=== PATIENT | female | born 1980 | race Caucasian/White ===

== ENCOUNTER → 2016-12-04 | Outpatient (CLI) | payer BC ==
[~2016-12-04] MED LIST: AMIT50TA3 PO; AMOX500C2 PO; ANTI15DR4 EACH EAR; ARPZ10T PO; ATOM80CA PO; CEPH500C PO; CTLP20T PO; DESV50TA PO; HYOS0.1283 SL; NAPR-243 PO; PANT40TA2 PO; TRAM-42 PO
[2016-12-04 11:37] LABS: BASOPHILS # (AUTO) 0.1 10^3/uL (0.0-0.1); BASOPHILS % (AUTO) 0 % (0-10); EOSINOPHILS # (AUTO) 0.2 10^3/uL (0.0-0.3); EOSINOPHILS % (AUTO) 1 % (0-10); LYMPHOCYTES # (AUTO) 2.7 X 10^3 (1.0-4.0); LYMPHOCYTES % (AUTO) 21 % (12-44); MEAN CORPUSCULAR HEMOGLOBIN 32 PG (25-34); MEAN CORPUSCULAR HGB CONC 35 G/DL (32-36); MEAN CORPUSCULAR VOLUME 92 FL (80-99); MEAN PLATELET VOLUME 9.3 FL (7.4-10.4); MONOCYTES # (AUTO) 0.6 X 10^3 (0.0-1.0); MONOCYTES % (AUTO) 5 % (0-12); NEUTROPHILS # (AUTO) 9.5 X 10^3 (1.8-7.8); NEUTROPHILS % (AUTO) 73 % (42-75); PLATELET COUNT 362 10^3/uL (130-400); RED BLOOD COUNT 4.44 10^6/uL (4.35-5.85); RED CELL DISTRIBUTION WIDTH 12.8 % (10.0-14.5)
[2016-12-04 11:50] LABS: ALANINE AMINOTRANSFERASE 12 U/L (0-55); ALBUMIN 4.3 GM/DL (3.2-4.5); ANION GAP 9 MMOL/L (5-14); ASPARTATE AMINO TRANSFERASE 17 U/L (5-34); BILIRUBIN,TOTAL 1.1 MG/DL (0.1-1.0); BLOOD UREA NITROGEN 12 MG/DL (7-18); BUN/CREATININE RATIO 16; CALCIUM 9.7 MG/DL (8.5-10.1); CARBON DIOXIDE 26 MMOL/L (21-32); CHLORIDE 106 MMOL/L (98-107); CREATININE SERUM 0.76 MG/DL (0.60-1.30); GFR ESTIMATED > 60; GLUCOSE 127 MG/DL (70-105); POTASSIUM 3.7 MMOL/L (3.6-5.0); SODIUM 141 MMOL/L (135-145); TOTAL PROTEIN 6.9 GM/DL (6.4-8.2)
[2016-12-04 12:05] LABS: EOSINOPHILS % (MANUAL) 1 %; LYMPHOCYTES % (MANUAL) 25 %; NEUTROPHILS % (MANUAL) 72 %
== END ==
LOC: LAB 11:13
PROVIDERS: ATTEND Nurse Practitioner Family
DX: A08.4 Viral intestinal infection, unspecified (principal)
CPT/HCPCS: 36415; 80053; 85007; 85027

== ENCOUNTER → 2018-04-15 | Outpatient (CLI) | payer BC ==
--- NOTE | 2018-04-15 11:27 | Diagnostic Imaging Report ---
EXAMINATION: Magnetic resonance imaging of the left ankle without contrast. DATE: April 15, 2018. COMPARISON: None. HISTORY: 37-year-old female, left ankle pain laterally. TECHNIQUE: Magnetic Resonance Imaging sequences were performed of the ankle without contrast. [< >] FINDINGS: TENDONS AND LIGAMENTS: The Achilles tendon is unremarkable. There is fluid within the flexor hallucis longus tendon sheath which is disproportional to the amount of tibiotalar joint fluid consistent with tenosynovitis. The additional posterior flexor tendons are intact. The peroneal tendons - peroneus longus and peroneus brevis - are intact. The anterior extensor tendons - tibialis anterior, extensor hallucis longus and extensor digitorum longus tendons - are intact. The anterior and posterior syndesmotic ligaments are intact. There is a well-corticated ossification without marrow edema along the distribution of the anterior talofibular ligament compatible with sequela of remote prior injury. The posterior talofibular ligament and calcaneofibular ligaments are both intact. The deltoid ligament complex is intact. The plantar fascia is intact. The ligaments within the sinus tarsi appear intact. JOINTS: The ankle mortise is intact. The subtalar and visualized joints of the mid-foot are intact. BONE: There is an ossification adjacent to the dorsal and proximal aspect of the navicular with narrow edema in the ossification. There is also generalized edema like signal throughout the majority of the navicular bone. There is also likely a probable nondisplaced fracture line seen on axial PD sequence image 17 and also on sagittal STIR sequence image 8. The additional bone marrow signal is unremarkable. The talar dome is intact. BURSAE AND SOFT TISSUES: The bursae and soft tissues surrounding the ankle are unremarkable. IMPRESSION: 1. Prominent edema like signal throughout the majority of the navicular with nondisplaced fracture of the navicular. This potentially could be a stress related fracture. 2. Ossification adjacent to the dorsal and proximal aspect of the navicular with internal marrow edema. This potentially could reflect a mildly displaced avulsion related fracture fragment or could relate to degenerative type enthesopathy or accessory ossicle with abnormal motion. 3. Tenosynovitis of flexor hallucis longus. Negative for tendon tear. 4. Ossification in the distribution of the anterior talofibular ligament compatible with sequela of remote prior injury. The additional ankle ligaments are intact. Dictated by: Dictated on workstation # [id number]
== END ==
LOC: RAD 09:36
PROVIDERS: ATTEND Nurse Practitioner Family
DX: S92.255A Nondisplaced fracture of navicular [scaphoid] of left foot, initial encounter for closed fracture (principal); S93.492A Sprain of other ligament of left ankle, initial encounter; M67.874 Other specified disorders of tendon, left ankle and foot
CPT/HCPCS: 73721

== ENCOUNTER 2019-05-27 10:10 | Emergency (ER) | payer BC, MEDICAID ==
[~2019-05-27] VITALS: Ht 167 cm; Wt 59.0 kg
[2019-05-27] MEDS ORDERED: GABA-488 PO (10:27)
--- NOTE | 2019-05-27 11:17 | ED Lower Extremity ---
General Chief Complaint: Lower Extremity Stated Complaint: L FOOT INJ Nursing Triage Note: PT TO ROOM 10 PER W/C. PT CO OF L KNEE PAIN, STATES TWISTED KNEE LAST PM WHILE TRYING TO OPEN GATE. PT CO OF PAIN / HAS SL SWELLING Nursing Sepsis Screen: No Definite Risk Source: patient Exam Limitations: no limitations History of Present Illness Date Seen by Provider: May 27, 2019 Time Seen by Provider: 10:40 Initial Comments This 38-year-old woman presents to the emergency room with complaints of pain in the left knee. Pain started last night after she was trying to force open a frozen fence. She was kicking the fence with her right foot. During the twisting motion of kicking the left knee began to hurt. She has effusion and pain with any range of motion in the left knee. She has had more minor problems with this knee in the past but it has not been this severe. She does sometimes have catching of the knee and she has a popping sensation with flexion and extension. She is able to bear weight and walk but with difficulty. Allergies and Home Medications Allergies Coded Allergies: No Known Drug Allergies (Unverified , 04/15/11) Home Medications Gabapentin 300 Mg Capsule, 300 MG PO TID, (Reported) Tramadol HCl 50 Mg Tablet, 50 MG PO Q6H PRN for PAIN-BREAKTHROUGH Prescribed by: JARRETT MORA on 05/27/19 1203 Patient Home Medication List Home Medication List Reviewed: Yes Review of Systems Constitutional: no symptoms reported EENTM: no symptoms reported Respiratory: no symptoms reported Cardiovascular: no symptoms reported Gastrointestinal: no symptoms reported Genitourinary: no symptoms reported : No Musculoskeletal: see HPI Skin: no symptoms reported Psychiatric/Neurological: No Symptoms Reported Past Johqofq-Etsxjh-Rvgisv Hx Past Med/Social Hx: Reviewed Nursing Past Med/Soc Hx Patient Social History Alcohol Use: Rarely Uses Recreational Drug Use: No (SMOKES 1/2 PPD) Smoking Status: Current Everyday Smoker Type Used: Cigarettes Recent Foreign Travel: No Contact w/Someone Who Travel: No Recent Infectious Disease Expo: No Recent Hopitalizations: No Physical Abuse: No Sexual Abuse: No Past Medical History Surgeries: Yes (TEETH REMOVED) Breast, Orthopedic, Tubal Ligation Respiratory: No Cardiac: No Neurological: No Last Menstrual Period: May 27, 2019 Reproductive Disorders: No HIV/AIDS: No Gastrointestinal: Yes (HEPATITIS C) Hepatitis Musculoskeletal: No Endocrine: No Psychosocial: No Integumentary: No Blood Disorders: No Physical Exam Vital Signs Vital Signs - First Documented 05/27/19 10:10 Temp 36.4 Pulse 92 Resp 18 B/P (MAP) 102/80 (87) Pulse Ox 97 Capillary Refill : Less Than 3 Seconds Height, Weight, BMI Height: 5'6" Weight: 160lbs. oz. 72.730678lt; 21.00 BMI Method:Stated General Appearance: WD/WN, no apparent distress, thin HEENT: normal ENT inspection Cardiovascular: regular rate, rhythm, no murmur Respiratory: lungs clear, normal breath sounds, no respiratory distress Legs: left leg non-tender, left leg normal inspection, left leg no evidence of injury Knees: left knee bone tenderness, left knee joint effusion, left knee pain, left knee other (most tender at the medial joint line. Pain with movement of the patella, flexion, extension, and palpation along the anterior joint line. 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, no motor/sensory deficits, alert, normal mood/affect, oriented x 3 Skin: normal color, warm/dry Progress/Results/Core Measures Results/Orders My Orders Orders - JARRETT TEJEDA MD Knee, Left, 3 Views (05/27/19 10:49) Tramadol Tablet (Ultram Tablet) (05/27/19 12:15) Medications Given in ED Current Medications Medications Dose Ordered Sig/Doe Route Start Time Stop Time Status Last Admin Dose Admin Tramadol HCl 50 mg ONCE ONCE PO 05/27/19 12:15 05/27/19 12:16 DC 05/27/19 12:09 50 MG Vital Signs/I&O 05/27/19 05/27/19 10:10 12:16 Temp 36.4 36.4 Pulse 92 92 Resp 18 18 B/P (MAP) 102/80 (87) 102/80 (87) Pulse Ox 97 97 Blood Pressure Mean: 87 Progress Progress Note : Progress Note Knee x-ray was negative. I suspect a meniscal tear based on history and exam. I have recommended patient follow up with Dr. Montes De Oca for further evaluation. Further workup such as MRI or arthroscopic he may be necessary to diagnose the cause of her problem. Ultram was given to treat the pain. A prescription was also provided. Diagnostic Imaging Diagonstic Imaging: Xray Plain Films/CT/US/NM/MRI: knee Comments Left knee x-ray viewed by me and report reviewed. See report below: NAME: PADMINI WOMACK [facility] REC#: [id number] PT STATUS: REG ER : 1980 PHYSICIAN: JARRETT TEJEDA MD ADMIT DATE: 05/27/19/ER Draft Date of Exam:05/27/19 KNEE, LEFT, 3 VIEWS EXAMINATION: Left knee at 11:23 a.m. INDICATION: Knee pain. TECHNIQUE: Three views were obtained. COMPARISON: There are no prior studies available for comparison. FINDINGS: There is no fracture, dislocation, or acute bony abnormality evident. The knee joint is well maintained. The soft tissues are unremarkable. IMPRESSION: There is no evidence for an acute bony abnormality. Dictated on workstation # [id number] Dict: 05/27/19 1153 Trans: 05/27/19 1156 [id number] Interpreted by: PIPE HENDRICKSON MD Departure Impression Primary Impression: Left knee injury Qualified Codes: S89.92XA - Unspecified injury of left lower leg, initial encounter Disposition: 01 HOME, SELF-CARE Condition: Stable Departure-Patient Inst. Decision time for Depature: 12:00 Referrals: PRO HERNANDEZ APRN (PCP) Primary Care Physician CAIT MONTES DE OCA MD Patient Instructions: Meniscal Tear Add. Discharge Instructions: You may use ibuprofen up to 600 mg every 6 hours and/or Tylenol (acetaminophen) up to 1000 mg every 6 hours as needed for primary pain control. Elevation and icing in 20 minute intervals may also be helpful. Compressive wrapping with a knee sleeve or Anand bandage may be helpful. Follow-up with Dr. Monte sDe Oca or your primary care provider as soon as possible for further evaluation. You may need MRI or arthroscopic surgery to appropriately diagnose the cause of your pain. Return to care if symptoms are worsening and not controlled by pcod-kti-gsmjvpf medications. All discharge instructions reviewed with patient and/or family. Voiced understanding. Scripts Tramadol HCl (Ultram) 50 Mg Tablet 50 MG PO Q6H PRN for PAIN-BREAKTHROUGH, #20 TAB Prov: JARRETT TEJEDA MD 05/27/19 Work/School Note: Work Release Form Date Seen in the Emergency Department: May 27, 2019 Return to Work: May 27, 2019 Other Restrictions Listed Below: May have limited mobility due to injury and pain. 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 Copy Copies To 1: CAIT MONTES DE OCA MD, JOSHUA T MD May 27, 2019 11:17
--- NOTE | 2019-05-27 11:56 | Diagnostic Imaging Report ---
EXAMINATION: Left knee at 11:23 a.m. INDICATION: Knee pain. TECHNIQUE: Three views were obtained. COMPARISON: There are no prior studies available for comparison. FINDINGS: There is no fracture, dislocation, or acute bony abnormality evident. The knee joint is well maintained. The soft tissues are unremarkable. IMPRESSION: There is no evidence for an acute bony abnormality. Dictated by: Dictated on workstation # [id number]
[2019-05-27] MEDS ORDERED: TRAM-42 PO (12:09)
[2019-05-27 12:16] VITALS: BP 102/80
== END 2019-05-27 12:16 | disposition home or self-care (01) ==
LOC: EDUNIT# 10:11 → ER 10:12
DX: S89.92XA Unspecified injury of left lower leg, initial encounter (principal); F17.210 Nicotine dependence, cigarettes, uncomplicated; X50.1XXA Overexertion from prolonged static or awkward postures, initial encounter
CPT/HCPCS: 73562

== ENCOUNTER 2020-02-20 14:27 | Emergency (ER) | payer MEDICAID ==
[~2020-02-20] VITALS: Ht 167 cm; Wt 66.0 kg
[~2020-02-20 14:27] MED LIST changes: +GABA-488 PO
[2020-02-20] MEDS ORDERED: KETOROLAC 60 MG/2 ML VIAL IM ONE (15:15)
[2020-02-20] MEDS ORDERED: PROCHLORPERAZINE 10 MG/2ML INJ (COMPAZINE) IM ONE (15:15)
[2020-02-20] MEDS ORDERED: diphenhydrAMINE 50 MG/ML INJ (BENADRYL) IM ONE (15:15)
--- NOTE | 2020-02-20 16:06 | ED Headache ---
General Chief Complaint: Head/Cervical Problems Stated Complaint: HEADACHE Nursing Triage Note: PT CO OF GIBBS SINCE THURSDAY, STATES WAS SEEN BY PROVIDER ON THURSDAY, GIBBS BACK THROBBING RATES PAIN 11/20 Nursing Sepsis Screen: No Definite Risk Source: patient Exam Limitations: no limitations History of Present Illness Date Seen by Provider: Feb 20, 2020 Time Seen by Provider: 15:00 Initial Comments To ER with a headache. This initially started left-sided and then became right- sided. She does have photophobia no nausea or vomiting. It started mild and got progressively worse. No fevers or chills or head trauma. She was seen at [facility] and given a shot of Toradol and Benadryl with improvement in symptoms. It then recurred a few days later, she was given these injections about 3 to 4 days ago. Timing/Duration: waxing and waning Severity/Quality: moderate Location: global Prior Headaches/Recent Trauma: no recent headache/trauma Associated Symptoms: denies symptoms Allergies and Home Medications Allergies Coded Allergies: No Known Drug Allergies (Unverified , 04/15/11) Home Medications Gabapentin 300 Mg Capsule, 300 MG PO TID, (Reported) Tramadol HCl 50 Mg Tablet, 50 MG PO Q6H PRN for PAIN-BREAKTHROUGH Prescribed by: JARRETT MORA on 05/27/19 1209 Patient Home Medication List Home Medication List Reviewed: Yes Review of Systems Review of Systems Constitutional: see HPI; No chills, No fever Eyes: No Symptoms Reported Ears, Nose, Mouth, Throat: no symptoms reported Respiratory: no symptoms reported Cardiovascular: no symptoms reported Genitourinary: no symptoms reported Musculoskeletal: no symptoms reported Skin: no symptoms reported Psychiatric/Neurological: No Symptoms Reported Past Vglxety-Jqpxlb-Lksfcb Hx Patient Social History Alcohol Use: Rarely Uses Recreational Drug Use: No Smoking Status: Current Everyday Smoker Type Used: Cigarettes Recent Foreign Travel: No Contact w/Someone Who Travel: No Recent Infectious Disease Expo: No Recent Hopitalizations: No Physical Abuse: No Sexual Abuse: No Past Medical History Surgeries: Yes (TEETH REMOVED) Breast, Orthopedic, Tubal Ligation Respiratory: No Cardiac: No Neurological: No Last Menstrual Period: Feb 19, 2020 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 oz. 72.648828hs; 23.00 BMI Method:Stated General Appearance: WD/WN, no apparent distress HEENT: PERRL/EOMI, normal ENT inspection Neck: non-tender, full range of motion Respiratory: no respiratory distress, no accessory muscle use Extremities: normal range of motion, non-tender Psychiatric: alert, oriented x 3 Crainal Nerves: normal hearing, normal speech, PERRL Skin: normal color, warm/dry Progress/Results/Core Measures Results/Orders My Orders Orders - SARI NASH APRN Ketorolac Injection (Toradol Injection) (02/20/20 15:15) Prochlorperazine Injection (Compazine In (02/20/20 15:15) Diphenhydramine Injection (Benadryl Inje (02/20/20 15:15) Ct Head Wo (02/20/20 15:15) Medications Given in ED Current Medications Medications Dose Ordered Sig/Doe Route Start Time Stop Time Status Last Admin Dose Admin Diphenhydramine HCl 25 mg ONCE ONCE IM 02/20/20 15:15 02/20/20 15:17 DC 02/20/20 15:35 25 MG Ketorolac Tromethamine 60 mg ONCE ONCE IM 02/20/20 15:15 02/20/20 15:17 DC 02/20/20 15:34 60 MG Prochlorperazine Edisylate 10 mg ONCE ONCE IM 02/20/20 15:15 02/20/20 15:17 DC 02/20/20 15:34 10 MG Vital Signs/I&O 02/20/20 14:50 Temp 36.5 Pulse 71 Resp 18 B/P (MAP) 119/83 (95) Pulse Ox 99 Blood Pressure Mean: 95 Departure Impression Primary Impression: Headache Disposition: 01 HOME, SELF-CARE Condition: Improved Departure-Patient Inst. Decision time for Depature: 16:34 Referrals: FREDERICK CALIX APRN (PCP/Family) Primary Care Physician Patient Instructions: HEADACHE Add. Discharge Instructions: All discharge instructions reviewed with patient and/or family. Voiced understanding. SARI NASH DREDGE PUMP OPERATOR Feb 20, 2020 16:06
--- NOTE | 2020-02-20 16:29 | Diagnostic Imaging Report ---
PROCEDURE: CT head without contrast. TECHNIQUE: Multiple contiguous axial images were obtained through the brain without the use of intravenous contrast. Auto Exposure Controls were utilized during the CT exam to meet ALARA standards for radiation dose reduction. DATE: February 20, 2020. COMPARISON: None. INDICATION: 39-year-old female, headache for 5 days. FINDINGS: The ventricles and cerebral spinal fluid spaces are of normal size and configuration for the patient's age. There is no mass effect or midline shift. There is no acute intracranial hemorrhage. There is no abnormal extra-axial fluid collection. The visualized portions of the paranasal sinuses, mastoid air cells and middle ears are well aerated. IMPRESSION: No identified acute intracranial abnormality. Dictated by: Dictated on workstation # [id number]
[2020-02-20] MEDS ORDERED: BUTA1CAP17 PO (16:39)
[2020-02-20 16:44] VITALS: BP 119/83
== END 2020-02-20 16:44 | disposition home or self-care (01) ==
LOC: EDUNIT# 14:27 → ER 14:31
DX: R51.9 Headache, unspecified (principal); H53.149 Visual discomfort, unspecified; B19.20 Unspecified viral hepatitis C without hepatic coma; F17.210 Nicotine dependence, cigarettes, uncomplicated
CPT/HCPCS: 70450

== ENCOUNTER → 2020-07-30 | Outpatient (CLI) | payer MEDICAID ==
[~2020-07-30] MED LIST changes: +BUTA1CAP17 PO
--- NOTE | 2020-07-30 13:46 | Diagnostic Imaging Report ---
INDICATION: Routine screening. Comparison is made prior mammogram from 05/05/2016. 2-D and 3-D bilateral screening mammography was performed with CAD. Both breasts are heterogeneously dense, limiting the sensitivity of mammography. The parenchymal pattern appears to be stable. There is a mixed density lesion in the upper and outer aspect of the left breast which could represent a lipoma hamartoma. No other masses are seen. No malignant appearing microcalcifications are identified. Axillae are unremarkable. IMPRESSION: BI-RADS Category 2 No mammographic features suspicious for malignancy are identified. ACR BI-RADS Category 2: Benign findings. Result letter will be mailed to the patient. Note: At least 10% of breast cancer is not imaged by mammography. Dictated by: Dictated on workstation # [id number]
== END ==
LOC: RAD 08:15
PROVIDERS: ATTEND Pediatrics
DX: Z12.31 Encounter for screening mammogram for malignant neoplasm of breast (principal)
CPT/HCPCS: 77063; 77067

== ENCOUNTER 2020-11-06 12:24 | Emergency (ER) | payer MEDICAID ==
[~2020-11-06] VITALS: Ht 167.7 cm; Wt 65.0 kg
--- NOTE | 2020-11-06 13:05 | ED General ---
General Chief Complaint: General Problems/Pain Stated Complaint: COVID EXPOSURE Source of Information: Patient Exam Limitations: No Limitations (SARI NASH APRN) History of Present Illness Date Seen by Provider: Nov 06, 2020 Time Seen by Provider: 13:03 Initial Comments To ER by private vehicle with reports of exposure to Covid positive patient last night while at work. She works for [employer]. Her boss required her to come get tested today. She is asymptomatic. She is unvaccinated. Timing/Duration: 1-2 Days Severity: Moderate Associated Systoms: Denies Symptoms (SARI NASH APRN) Allergies and Home Medications Allergies Coded Allergies: No Known Drug Allergies (Unverified , 04/15/11) Home Medications Butalbital/Aspirin/Caffeine 1 Each Capsule, 1 EACH PO Q4H PRN for headache Prescribed by: SARI NASH on 02/20/20 1640 Gabapentin 300 Mg Capsule, 300 MG PO TID, (Reported) Tramadol HCl 50 Mg Tablet, 50 MG PO Q6H PRN for PAIN-BREAKTHROUGH Prescribed by: JARRETT MORA on 05/27/19 1209 Patient Home Medication List Home Medication List Reviewed: Yes (SARI NASH APRN) Review of Systems Review of Systems Constitutional: see HPI EENTM: see HPI Respiratory: no symptoms reported Cardiovascular: no symptoms reported Genitourinary: no symptoms reported Musculoskeletal: no symptoms reported Skin: no symptoms reported Psychiatric/Neurological: No Symptoms Reported Hematologic/Lymphatic: No Symptoms Reported (SARI NASH APRN) Past Zmmluwv-Zrvrks-Ubmksd Hx Past Medical History Surgeries: Yes (TEETH REMOVED) Breast, Orthopedic, Tubal Ligation Respiratory: No Cardiac: No Neurological: No 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 oz. 72.544621ku; 23.00 BMI Method:Stated General Appearance: No Apparent Distress, WD/WN Eyes: Bilateral Eye Normal Inspection, Bilateral Eye PERRL, Bilateral Eye EOMI HEENT: PERRL/EOMI, TMs Normal Neck: Full Range of Motion, Normal Inspection Respiratory: No Accessory Muscle Use, No Respiratory Distress Cardiovascular: Regular Rate, Rhythm, Normal Peripheral Pulses Gastrointestinal: Normal Bowel Sounds, Non Tender, Soft Extremity: Normal Capillary Refill, Normal Inspection Neurologic/Psychiatric: Alert, Oriented x3 Skin: Normal Color, Warm/Dry (SARI NASH APRN) Progress/Results/Core Measures Suspected Sepsis SIRS Temperature: Pulse: Respiratory Rate: Blood Pressure / Mean: (SARI NASH APRN) Results/Orders Lab Results Laboratory Tests Test 11/06/20 12:50 Range/Units SARS-CoV-2 RNA (RT-PCR) Not Detected Not Detecte (JARRETT TEJEDA MD) Vital Signs/I&O 11/06/20 11/06/20 12:36 14:00 Temp 37.2 Pulse 86 83 Resp 16 18 B/P (MAP) 121/80 (94) 106/78 Pulse Ox 97 100 O2 Delivery Room Air Room Air (JARRETT TEJEDA MD) Vital Signs/I&O Capillary Refill : (SARI NASH APRN) Departure Impression Primary Impression: Exposure to COVID-19 virus Disposition: 01 HOME, SELF-CARE Condition: Stable Departure-Patient Inst. Decision time for Depature: 13:04 (SARI NASH APRN) Referrals: [facility]/ (PCP) Primary Care Physician FREDERICK CALIX APRN (Family) Primary Care Physician Patient Instructions: COVID-19 ED Add. Discharge Instructions: 1. Return to ER for any concerns if you have shortness of breath. However your boss should be informed that today's Covid test is essentially pointless because you were just exposed last night and even if positive I would not expect it to test positive for about 4 days. As such she would be a good idea to quarantine since you are unvaccinated for 10 days. All discharge instructions reviewed with patient and/or family. Voiced understanding. ATTENDING PHYSICIAN NOTE: I was physically present as attending physician in the emergency department during the care of this patient, but I was not directly involved in the decision making or delivery of care for this patient. (JARRETT TEJEDA MD) SARI NASH APRN Nov 06, 2020 13:05 JARRETT TEJEDA MD Nov 07, 2020 06:53
[2020-11-06 14:00] VITALS: BP 106/78
== END 2020-11-06 14:02 | disposition home or self-care (01) ==
LOC: EDUNIT# 12:24 → ER 12:26
DX: Z20.822 Contact with and (suspected) exposure to COVID-19 (principal)
CPT/HCPCS: 87636; 99281

== ENCOUNTER 2020-12-06 06:46 | Emergency (ER) | payer MEDICAID ==
[~2020-12-06] VITALS: Ht 167 cm; Wt 65.0 kg
--- NOTE | 2020-12-06 08:13 | Diagnostic Imaging Report ---
EXAMINATION: Right knee 3 views HISTORY: knee pain COMPARISON: None available. FINDINGS: There is a small knee joint effusion. There is soft tissue swelling about the knee. No acute fracture is seen. Alignment is normal. IMPRESSION: 1. Small knee joint effusion and soft tissue swelling about the right knee. No fracture. Dictated by: Dictated on workstation # [id number]
[2020-12-06] MEDS ORDERED: HYDR-3820 PO (09:32)
--- NOTE | 2020-12-06 09:33 | ED Lower Extremity ---
General Chief Complaint: Lower Extremity Stated Complaint: RT KNEE INJURY Nursing Triage Note: pt presents to ed with complaints of r knee pain after injuring it last night. Source: patient Exam Limitations: no limitations Allergies and Home Medications Allergies Coded Allergies: No Known Drug Allergies (Unverified , 04/15/11) Home Medications Butalbital/Aspirin/Caffeine 1 Each Capsule, 1 EACH PO Q4H PRN for headache Prescribed by: SARI NASH on 02/20/20 1640 Gabapentin 300 Mg Capsule, 300 MG PO TID, (Reported) Tramadol HCl 50 Mg Tablet, 50 MG PO Q6H PRN for PAIN-BREAKTHROUGH Prescribed by: JARRETT MORA on 05/27/19 1209 Past Cyxrjcx-Dsqaca-Civrub Hx Patient Social History Tobacco Use?: Yes Tobacco type used: Cigarettes Smoking Status: Current Everyday Smoker Substance use?: No Alcohol Use?: Yes Alcohol Frequency: Once in a while Pt feels they are or have been: No Past Medical History Surgery/Hospitalization HX: sx: foot sx, tubal, breast biopsy, dnc. Surgeries: Yes (TEETH REMOVED) Breast, Orthopedic, Tubal Ligation Respiratory: No Cardiac: No Neurological: No Reproductive Disorders: No [employer] History: Tubal Ligation HIV/AIDS: No Gastrointestinal: Yes (HEPATITIS C) Hepatitis Musculoskeletal: No Endocrine: No Psychosocial: No Integumentary: No Blood Disorders: No Physical Exam Vital Signs Vital Signs - First Documented 12/06/20 07:21 Temp 35.7 Pulse 85 Resp 18 B/P (MAP) 123/68 (86) Pulse Ox 99 Capillary Refill : Less Than 3 Seconds Height, Weight, BMI Height: 5'6" Weight: 160lbs. oz. 72.870034pi; 23.00 BMI Method:Stated Progress/Results/Core Measures Results/Orders My Orders Orders - JARRETT TEJEDA MD Knee, Right, 3 Views (12/06/20 07:47) Vital Signs/I&O 12/06/20 07:21 Temp 35.7 Pulse 85 Resp 18 B/P (MAP) 123/68 (86) Pulse Ox 99 Blood Pressure Mean: 86 Departure Impression Primary Impression: Right knee injury Qualified Codes: S89.91XA - Unspecified injury of right lower leg, initial encounter Disposition: 01 HOME, SELF-CARE Condition: Stable Departure-Patient Inst. Decision time for Depature: 09:29 Referrals: [facility] [place]) Primary Care Physician FREDERICK CALIX APRN (Family) Primary Care Physician CAIT MONTES DE OCA MD Patient Instructions: Ligament Injuries in the Knee Add. Discharge Instructions: Use crutches to ambulate. Use the knee immobilizer as much as possible, especially if you need to bear weight on your right foot. Follow-up with Dr. Montes De Oca's office at 10:30 tomorrow morning. You may take ibuprofen up to 600 mg every 6 hours as needed for pain. Add hydrocodone as prescribed for uncontrolled pain. Elevate as much as possible. Apply ice in 20-minute intervals to help reduce pain and swelling. Call with questions or concerns. Return to the ER if you have worsening symptoms. All discharge instructions reviewed with patient and/or family. Voiced understanding. Scripts Hydrocodone/Acetaminophen (Hydrocodone-Acetamin 10-325 mg) 1 Each Tablet 1 EACH PO Q4H PRN for PAIN-BREAKTHROUGH, #10 TAB Prov: JARRETT TEJEDA MD 12/06/20 JARRETT TEJEDA MD Dec 06, 2020 09:33
[2020-12-06 09:48] VITALS: BP 113/64
== END 2020-12-06 09:48 | disposition home or self-care (01) ==
LOC: EDUNIT# 06:46 → ER 06:50
DX: S89.91XA Unspecified injury of right lower leg, initial encounter (principal); F17.210 Nicotine dependence, cigarettes, uncomplicated; X58.XXXA Exposure to other specified factors, initial encounter
CPT/HCPCS: 73562; 99283; L1830

== ENCOUNTER → 2022-04-28 | Outpatient (CLI) | payer MEDICAID ==
[~2022-04-28] MED LIST changes: +HYDR-3820 PO; +RT-ALBUTEROL SULF 2.5 MG/3 ML PRE-MIX VIAL INH ONE
== END ==
LOC: RT 07:37
PROVIDERS: ATTEND Nurse Practitioner Family
DX: R06.02 Shortness of breath (principal)
CPT/HCPCS: 94060; 94726; 94729

== ENCOUNTER 2022-09-16 13:14 | Emergency (ER) | payer MEDICAID ==
[~2022-09-16] VITALS: Ht 167 cm; Wt 67.0 kg
[~2022-09-16 13:14] MED LIST changes: -RT-ALBUTEROL SULF 2.5 MG/3 ML PRE-MIX VIAL INH ONE
--- NOTE | 2022-09-16 13:55 | ED Back Pain ---
General Chief Complaint: Back Problems Stated Complaint: LOWER BACK PAIN Nursing Triage Note: LOW BACK PAIN X2 WEEKS. NO INJURY. STATES TYLENOL/IBUPROFEN/LIDOCAINE PATCHES NOT HELPING. Source of Information: Patient Exam Limitations: No Limitations History of Present Illness Date Seen by Provider: Sep 16, 2022 Time Seen by Provider: 13:50 Initial Comments Patient is a 42-year-old female who presents ED with low back pain. Back pain started 2 weeks ago. She describes the pain as dull and constant. Pain over the past few days has increased described as sharp worse with bending over or any sudden movement. Denies of any bowel or urine incontinence, saddle paresthesia, lower extremity weakness. Cannot recall any specific injury. She has been taken Tylenol or ibuprofen without much improvement. She denies of any fever, chills, drug use, bone disorders, night sweats, abdominal pain, dysuria, hematuria. Allergies and Home Medications Allergies Coded Allergies: No Known Drug Allergies (Unverified , 04/15/11) Patient Home Medication List Home Medication List Reviewed: Yes Butalbital/Aspirin/Caffeine (Fiorinal 50-325-40 mg Capsule) 1 Each Capsule, 1 EACH PO Q4H PRN for headache Prescribed by: SARI NASH on 02/20/20 1640 Gabapentin (Gabapentin) 300 Mg Capsule, 300 MG PO TID, (Reported) Entered as Reported by: LAINE LOWE on 05/27/19 1027 Hydrocodone/Acetaminophen (Hydrocodone-Acetamin 10-325 mg) 1 Each Tablet, 1 EACH PO Q4H PRN for PAIN-BREAKTHROUGH Prescribed by: JARRETT MORA on 12/06/20 0933 Hydrocodone/Acetaminophen (Hydrocodone-Acetamin 5-325 mg) 5 Mg-325 Mg Tablet, 1 TAB PO Q4H PRN for PAIN-MODERATE (5-7) Prescribed by: WILLIAM ORTIZ on 09/16/22 1452 Methylprednisolone (Methylprednisolone Dose Pack) 4 Mg Tab.ds.pk, 4 MG PO UD Prescribed by: WILLIAM ORTIZ on 09/16/22 1451 Naproxen (Naproxen) 500 Mg Tablet, 500 MG PO Q12H Prescribed by: WILLIAM ORTIZ on 09/16/22 1451 Tramadol HCl (Ultram) 50 Mg Tablet, 50 MG PO Q6H PRN for PAIN-BREAKTHROUGH Prescribed by: JARRETT MORA on 05/27/19 1209 Review of Systems Constitutional: No chills, No diaphoresis EENTM: No hearing loss, No ear pain, No blurred vision Respiratory: No cough, No dyspnea on exertion, No hemoptysis, No orthopnea, No short of breath Cardiovascular: No chest pain Gastrointestinal: No abdominal pain, No nausea, No vomiting Genitourinary: No decreased output, No discharge Musculoskeletal: back pain; No joint pain, No joint swelling; muscle pain Skin: No change in color, No change in hair/nails All Other Systems Reviewed Negative Unless Noted: Yes Past Kergxkb-Qgagip-Ispqsj Hx Patient Social History Tobacco Use?: Yes Tobacco type used: Cigarettes Smoking Status: Current Everyday Smoker Substance use?: No Alcohol Use?: No Past Medical History Surgery/Hospitalization HX: sx: foot sx, tubal, breast biopsy, dnc. 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 oz. 72.753173pl; 24.00 BMI Method:Stated General Appearance: No Apparent Distress, WD/WN HEENT: PERRL/EOMI, TMs Normal, Normal ENT Inspection, Pharynx Normal Neck: Full Range of Motion, Normal Inspection, Non Tender, Supple Cardiovascular: Regular Rate, Rhythm, No Edema, No Gallop, No JVD, No Murmur Respiratory: Chest Non Tender, Lungs Clear, Normal Breath Sounds, No Accessory Muscle Use, No Respiratory Distress Gastrointestinal: Normal Bowel Sounds, No Organomegaly, No Pulsatile Mass, Non Tender, Soft Back: No CVA Tenderness, No Vertebral Tenderness, Vertebral Tenderness (Right lumbar paraspinal muscle tenderness pain with flexion. Normal active range of motion. No swelling or bruising or redness.) Extremity: Normal Capillary Refill, Normal Inspection, Normal Range of Motion Neurologic/Psychiatric: Alert, Oriented x3, No Motor/Sensory Deficits, Normal Mood/Affect, twister tender paper II-XII Norm as Tested Skin: Normal Color, Warm/Dry Progress/Results/Core Measures Results/Orders My Orders Orders - ASAEL BAKER Lumbar Spine - 2-3 Views (09/16/22 13:47) Hydrocodone/Apap 5/325 Tablet (Lortab 5 (09/16/22 14:00) Medications Given in ED Current Medications Medications Dose Ordered Sig/Doe Route Start Time Stop Time Status Last Admin Dose Admin Acetaminophen/ Hydrocodone Bitart 1 ea ONCE ONCE PO 09/16/22 14:00 09/16/22 14:01 DC 09/16/22 13:59 1 EA Vital Signs/I&O 09/16/22 13:26 Temp 36.6 Pulse 92 Resp 16 B/P (MAP) 134/81 (98) Pulse Ox 98 O2 Delivery Room Air Blood Pressure Mean: 98 Departure Communication (PCP) Reviewed previous ER visits, H&P, lab testing. Differential diagnosis low back muscle strain sprain, degenerative disc disease, compression fracture. Patient does not appear in acute distress. She has right-sided lumbar paraspinal muscle tenderness. Pain with flexion. No neurological red flag findings such as bowel or urine cons or saddle paresthesia. No emergent imaging. She has no urinary symptoms or flank pain. Pain is worse with bending over or any change in movements. Pain for the past 2 weeks. Due to the continuous pain x-ray was ordered which did not show any evidence of compression fracture, obvious lesion. No drug use or alcohol use. No night sweats or fevers. Patient received a dose of pain medication. Slight improvement of pain. Will discharge with Medrol Dosepak and anti-inflammatories. Recommend following up with PCP for further evaluation. She has a scheduled appointment on the . Further imaging such as MRI may be warranted if pain progresses. Would likely benefit with physical therapy. return precaution were discussed. Impression Primary Impression: Back pain Disposition: HOME, SELF-CARE Condition: Stable Departure-Patient Inst. Decision time for Depature: 14:49 Referrals: PRO HERNANDEZ APRN (PCP/Family) Primary Care Physician Patient Instructions: Low Back Pain (DC) Scripts Naproxen (Naproxen) 500 Mg Tablet 500 MG PO Q12H, #20 TAB Prov: ASAEL BAKER 09/16/22 Hydrocodone/Acetaminophen (Hydrocodone-Acetamin 5-325 mg) 5 Mg-325 Mg Tablet 1 TAB PO Q4H PRN for PAIN-MODERATE (5-7), #8 TAB Prov: ASAEL BAKER 09/16/22 Methylprednisolone (Methylprednisolone Dose Pack) 4 Mg Tab.ds.pk 4 MG PO UD for 6 Days, #21 PKG PER DOSE PACK INSTRUCTIONS Prov: ASAEL BAKER 09/16/22 ASAEL BAKER Sep 16, 2022 13:55
[2022-09-16] MEDS ORDERED: HYDROcodone/APAP 5 MG/325 MG (LORTAB) TAB PO ONE (14:00)
--- NOTE | 2022-09-16 14:41 | Diagnostic Imaging Report ---
INDICATION: Low back pain. COMPARISON: No priors. FINDINGS: Lumbar alignment is normal. There are some smooth old-appearing endplate concavities superiorly and inferiorly at multiple levels at their mid to posterior third. No retropulsion. No acute or subacute appearing fracture found. The disc spaces themselves are maintained. Facet relationships are normal. No identifiable defect to the pedicles or pars. While I have no priors for direct comparison, the lumbar spine does not appear changed from coronal images from abdominal CT performed in 2016. IMPRESSION: Stable unremarkable lumbar spine. Normal alignment. No acute or subacute abnormality. Dictated by: Dictated on workstation # [id number]
[2022-09-16] MEDS ORDERED: METH4TAB10 PO (14:51)
[2022-09-16] MEDS ORDERED: NAPR-915 PO (14:51)
[2022-09-16] MEDS ORDERED: ACHD5005 PO (14:51)
[2022-09-16 14:56] VITALS: BP 128/83
== END 2022-09-16 14:56 | disposition home or self-care (01) ==
LOC: EDUNIT# 13:14 → ER 13:17
DX: M54.50 Low back pain, unspecified (principal); F17.210 Nicotine dependence, cigarettes, uncomplicated
CPT/HCPCS: 72100

== ENCOUNTER 2022-10-09 09:14 | Emergency (ER) | payer MEDICAID ==
[~2022-10-09] VITALS: Ht 167 cm; Wt 66.2 kg
[~2022-10-09 09:14] MED LIST changes: +ACHD5005 PO; +METH4TAB10 PO; +NAPR-915 PO
[2022-10-09 09:31] LABS: BASOPHILS # (AUTO) 0.1 10^3/uL (0.0-0.1); BASOPHILS % (AUTO) 1 % (0-10); EOSINOPHILS # (AUTO) 0.3 10^3/uL (0.0-0.3); EOSINOPHILS % (AUTO) 3 % (0-10); HEMATOCRIT 38 % (35-52); HEMOGLOBIN 13.1 g/dL (11.5-16.0); LYMPHOCYTES # (AUTO) 2.9 10^3/uL (1.0-4.0); LYMPHOCYTES % (AUTO) 33 % (12-44); MEAN CORPUSCULAR HEMOGLOBIN 33 pg (25-34); MEAN CORPUSCULAR HGB CONC 34 g/dL (32-36); MEAN CORPUSCULAR VOLUME 98 fL (80-99); MEAN PLATELET VOLUME 9.4 fL (9.0-12.2); MONOCYTES # (AUTO) 0.7 10^3/uL (0.0-1.0); MONOCYTES % (AUTO) 8 % (0-12); NEUTROPHILS # (AUTO) 4.8 10^3/uL (1.8-7.8); NEUTROPHILS % (AUTO) 55 % (42-75); PLATELET COUNT 278 10^3/uL (130-400); WHITE BLOOD COUNT 8.7 10^3/uL (4.3-11.0)
[2022-10-09 09:41] LABS: ALBUMIN 4.1 GM/DL (3.2-4.5); CHLORIDE 110 MMOL/L (98-107); POTASSIUM 3.7 MMOL/L (3.6-5.0); SODIUM 140 MMOL/L (135-145)
[2022-10-09 09:42] LABS: CALCIUM 8.8 MG/DL (8.5-10.1)
[2022-10-09 09:44] LABS: GLUCOSE 106 MG/DL (70-105); TOTAL PROTEIN 6.2 GM/DL (6.4-8.2)
[2022-10-09 09:45] LABS: CARBON DIOXIDE 22 MMOL/L (21-32)
[2022-10-09 09:46] LABS: BILIRUBIN,TOTAL 0.5 MG/DL (0.1-1.0); PROTHROMBIN TIME PATIENT 13.3 SEC (12.2-14.7)
--- NOTE | 2022-10-09 09:46 | ED Chest Pain ---
General Chief Complaint: Chest Pain Stated Complaint: CHEST PAINS | Nursing Triage Note: PT PRESENTS TO ED VIA POV FROM [facility] FOR INTERMITTENT R SIDED "SHARP" CP SINCE YESTERDAY. PT REPORTS SHE CURRENTLY HAS NO CP. PT RECIEVED 324 MG ASA FROM [facility] THIS AM. Source: patient Exam Limitations: no limitations History of Present Illness Date Seen by Provider: Oct 09, 2022 Time Seen by Provider: 09:25 Initial Comments This 42-year-old woman presents to the emergency room via private vehicle as referred by the [facility] clinic for evaluation of chest pain. She has had intermit tent chest pain in the right upper chest that is sharp in nature and lasts only a few seconds at a time. It generally occurs while she is active. She noted about 8 episodes of it yesterday. Specifically she mentions an episode last night that occurred while she was running on a baseball field. Today the chest pain occurred at about 0645 while she was dusting at her workplace. She denies any other exacerbating or alleviating factors. He has no known cardiac disease. She does have risk factors with smoking and family history. Right chest is tender to palpation on exam. She takes naproxen daily and took a dose this morning. She also had aspirin 324 mg at the clinic. This morning she felt as though she was having a "hot flash" during the episode. She otherwise denies any associated symptoms. Shea denies any chest pain at this time. Outside EKG from [facility] was reviewed. It demonstrated normal sinus rhythm with no ST elevation or depression. Heart rate was 88. No significant abnormal intervals or axis deviation. Allergies and Home Medications Allergies Coded Allergies: latex (Verified Allergy, Unknown, 10/09/22) Patient Home Medication List Home Medication List Reviewed: Yes Butalbital/Aspirin/Caffeine (Fiorinal 50-325-40 mg Capsule) 1 Each Capsule, 1 EACH PO Q4H PRN for headache Prescribed by: SARI NASH on 02/20/20 1640 Gabapentin (Gabapentin) 300 Mg Capsule, 300 MG PO TID, (Reported) Entered as Reported by: LAINE LOWE on 05/27/19 1027 Hydrocodone/Acetaminophen (Hydrocodone-Acetamin 10-325 mg) 1 Each Tablet, 1 EACH PO Q4H PRN for PAIN-BREAKTHROUGH Prescribed by: JARRETT MORA on 12/06/20 0933 Hydrocodone/Acetaminophen (Hydrocodone-Acetamin 5-325 mg) 5 Mg-325 Mg Tablet, 1 TAB PO Q4H PRN for PAIN-MODERATE (5-7) Prescribed by: WILLIAM ORTIZ on 09/16/22 145 Methylprednisolone (Methylprednisolone Dose Pack) 4 Mg Tab.ds.pk, 4 MG PO UD Prescribed by: WILLIAM ORTIZ on 09/16/22 145 Naproxen (Naproxen) 500 Mg Tablet, 500 MG PO Q12H Prescribed by: WILLIAM ORTIZ on 09/16/22 145 Tramadol HCl (Ultram) 50 Mg Tablet, 50 MG PO Q6H PRN for PAIN-BREAKTHROUGH Prescribed by: JARRETT MORA on 05/27/19 1209 Review of Systems Review of Systems Constitutional: no symptoms reported EENTM: No Symptoms Reported Respiratory: No Symptoms Reported Cardiovascular: See HPI Gastrointestinal: No Symptoms Reported Genitourinary: No Symptoms Reported Musculoskeletal: see HPI Skin: no symptoms reported Psychiatric/Neurological: No Symptoms Reported Endocrine: No Symptoms Reported Hematologic/Lymphatic: No Symptoms Reported Past Qjtrslw-Gkgzqa-Egshqu Hx Patient Social History Tobacco Use?: Yes Tobacco type used: Cigarettes Smoking Status: Current Everyday Smoker Substance use?: No Additional substance use comme: clean since 2009 Alcohol Use?: Yes Alcohol Frequency: Once in a while Pt feels they are or have been: No Past Medical History Surgery/Hospitalization HX: sx: foot sx, tubal, breast biopsy, dnc. pmh: copd, chronic pain Surgeries: Yes (TEETH REMOVED) Breast (Biopsy), Orthopedic (Foot), Tubal Ligation Respiratory: No Cardiac: No Neurological: No : No Reproductive Disorders: No [employer] History: Tubal Ligation HIV/AIDS: No Gastrointestinal: Yes (HEPATITIS C) Hepatitis Musculoskeletal: No Endocrine: No Cancer: No Psychosocial: No Integumentary: No Blood Disorders: No Physical Exam Vital Signs Vital Signs - First Documented 10/09/22 09:20 Temp 37.0 Pulse 87 Resp 16 B/P (MAP) 123/70 (87) Pulse Ox 97 Capillary Refill : Less Than 3 Seconds Height, Weight, BMI Height: 5'6" Weight: 160lbs. oz. 72.192517en; 23.00 BMI Method:Stated General Appearance: No Apparent Distress, WD/WN HEENT: PERRL/EOMI, Normal ENT Inspection Neck: Normal Inspection; No JVD Respiratory: Lungs Clear, Normal Breath Sounds, No Accessory Muscle Use, No Respiratory Distress, Other (Right upper chest tender to palpation) Cardiovascular: Regular Rate, Rhythm, No Edema, No Murmur Gastrointestinal: Normal Bowel Sounds, Non Tender, Soft; No Distended Extremity: Normal Inspection, Non Tender, No Calf Tenderness, No Pedal Edema Neurologic/Psychiatric: Alert, Oriented x3, No Motor/Sensory Deficits, Normal Mood/Affect Skin: Normal Color, Warm/Dry Progress/Results/Core Measures Results/Orders Lab Results Laboratory Tests Test 10/09/22 09:24 10/09/22 11:30 Range/Units White Blood Count 8.7 4.3-11.0 10^3/uL Red Blood Count 3.94 3.80-5.11 10^6/uL Hemoglobin 13.1 11.5-16.0 g/dL Hematocrit 38 35-52 % Mean Corpuscular Volume 98 80-99 fL Mean Corpuscular Hemoglobin 33 25-34 pg Mean Corpuscular Hemoglobin Concent 34 32-36 g/dL Red Cell Distribution Width 13.0 10.0-14.5 % Platelet Count 278 130-400 10^3/uL Mean Platelet Volume 9.4 9.0-12.2 fL Immature Granulocyte % (Auto) 0 % Neutrophils (%) (Auto) 55 42-75 % Lymphocytes (%) (Auto) 33 12-44 % Monocytes (%) (Auto) 8 0-12 % Eosinophils (%) (Auto) 3 0-10 % Basophils (%) (Auto) 1 0-10 % Neutrophils # (Auto) 4.8 1.8-7.8 10^3/uL Lymphocytes # (Auto) 2.9 1.0-4.0 10^3/uL Monocytes # (Auto) 0.7 0.0-1.0 10^3/uL Eosinophils # (Auto) 0.3 0.0-0.3 10^3/uL Basophils # (Auto) 0.1 0.0-0.1 10^3/uL Immature Granulocyte # (Auto) 0.0 0.0-0.1 10^3/uL Prothrombin Time 13.3 12.2-14.7 SEC INR Comment 1.0 0.8-1.4 Activated Partial Thromboplast Time 29 24-35 SEC Sodium Level 140 135-145 MMOL/L Potassium Level 3.7 3.6-5.0 MMOL/L Chloride Level 110 H 98-107 MMOL/L Carbon Dioxide Level 22 21-32 MMOL/L Anion Gap 8 5-14 MMOL/L Blood Urea Nitrogen 16 7-18 MG/DL Creatinine 0.78 0.60-1.30 MG/DL Estimat Glomerular Filtration Rate 97 BUN/Creatinine Ratio 21 Glucose Level 106 H 70-105 MG/DL Calcium Level 8.8 8.5-10.1 MG/DL Corrected Calcium 8.7 8.5-10.1 MG/DL Magnesium Level 2.0 1.6-2.4 MG/DL Total Bilirubin 0.5 0.1-1.0 MG/DL Aspartate Amino Transf (AST/SGOT) 17 5-34 U/L Alanine Aminotransferase (ALT/SGPT) 13 0-55 U/L Alkaline Phosphatase 57 40-136 U/L Myoglobin 23.3 10.0-92.0 NG/ML Troponin I < 0.028 < 0.028 <0.028 NG/ML Total Protein 6.2 L 6.4-8.2 GM/DL Albumin 4.1 3.2-4.5 GM/DL My Orders Orders - JARRETT TEJEDA MD Cbc With Automated Diff (10/09/22 09:22) Magnesium (10/09/22 09:22) Chest 1 View, Ap/Pa Only (10/09/22 09:22) Ekg Tracing (10/09/22 09:22) Comprehensive Metabolic Panel (10/09/22 09:22) Myoglobin Serum (10/09/22 09:22) Protime With Inr (10/09/22:) Partial Thromboplastin Time (10/09/22 09:22) O2 (10/09/22 09:22) Monitor-Rhythm Ecg Trace Only (10/09/22 09:22) Lipid Panel (10/10/22 06:00) Ed Iv/Invasive Line Start (10/09/22 09:22) Troponin I [place] (10/09/22 09:22) Troponin I [place] (10/09/22 11:30) Vital Signs/I&O 10/09/22 09:20 Temp 37.0 Pulse 87 Resp 16 B/P (MAP) 123/70 (87) Pulse Ox 97 Blood Pressure Mean: 87 Progress Progress Note #1: Time: 09:53 Progress Note Patient was interviewed and examined. EKG was unremarkable as interpreted by me. EKG from the [facility] clinic likewise was unremarkable by my interpretation. Cardiac work-up is in progress. A 2-hour repeat troponin will be pursued if the initial troponin is negative. Patient is comfortably resting at this time. Vital signs are normal and stable. Progress Note #2: Time: 12:21 Progress Note Work-up was unremarkable in the emergency room. EKG demonstrated no ischemia by my interpretation. Chest x-ray was read as unremarkable by the radiologist. Report was reviewed. Labs were interpreted by me including CBC, CMP, magnesium, troponin, and coags. All labs were unremarkable by my interpretation. Patient experienced no further chest pain. She was discharged in stable condition with return precautions. See discharge instructions for further discussion. Initial ECG Impression Date: Oct 09, 2022 Initial ECG Impression Time: 09:25 Initial ECG Rate: 84 Initial ECG Rhythm: Normal Sinus Initial ECG Intervals: Normal Initial ECG Impression: Normal Comment Normal sinus rhythm with no ST elevation or depression. No abnormal intervals or axis deviation. Diagnostic Imaging Diagonstic Imaging: Xray Plain Films/CT/US/NM/MRI: chest Comments NAME: SHEA WOMACK [facility] REC#: [id number] PT STATUS: REG ER : 1980 PHYSICIAN: JARRETT TEJEDA MD ADMIT DATE: 10/09/22/ER Signed Date of Exam:10/09/22 CHEST 1 VIEW, AP/PA ONLY INDICATION: Chest pain. COMPARISON: None available. FINDINGS: The lungs appear clear without focal airspace opacities or consolidation. There are no findings of an effusion. There is no evidence of a pneumothorax. Heart size and mediastinal contours appear appropriate. Pulmonary vascularity appears within normal limits. There is no acute or suspicious osseous abnormality demonstrated. IMPRESSION: No radiographic evidence of an acute cardiopulmonary process. Dictated by: Dictated on workstation # [id number] Dict: 10/09/2248 Trans: 10/09/2248 ED [facility] [id number] Interpreted by: CRISTIAN MCKENNA MD Electronically signed by: CRISTIAN MCKENNA MD 10/09/22 0948 Departure Impression Primary Impression: Chest wall pain Disposition: 01 HOME, SELF-CARE Condition: Stable Departure-Patient Inst. Decision time for Depature: 12:15 Referrals: PRO HERNANDEZ APRN (PCP/Family) Primary Care Physician Patient Instructions: Chest Pain That Is Not Caused by the Heart (DC), Chest Pain Add. Discharge Instructions: Your chest pain is most likely caused by some type of inflammatory or musculoskeletal issue in the chest wall. However, you do have risk factors for heart disease, and heart disease cannot be completely ruled out at the emergency room. You should follow-up with your primary care provider soon as possible to pursue further evaluation and possible referral to cardiology. You may take ibuprofen up to 600 mg every 6 hours as needed for pain. Take ibuprofen with food or milk to avoid stomach upset. Add Tylenol (acetaminophen) up to 1000 mg every 6 hours as needed for additional pain relief. You may also try topical pain relievers such as lidocaine patches or rubs. Take aspirin 81 mg daily. Work toward quitting smoking as rapidly as possible to reduce your risk of cardiovascular disease and other illnesses. Seek assistance from your primary care provider if needed. Return to the emergency room if you have recurrent episodes of chest pain or other serious symptoms despite following these instructions. All discharge instructions reviewed with patient and/or family. Voiced understanding. Copy Copies To 1: [facility]/JARRETT NICKERSON MD Oct 09, 2022 09:46
[2022-10-09 09:47] LABS: ALKALINE PHOSPHATASE 57 U/L (40-136); CREATININE SERUM 0.78 MG/DL (0.60-1.30); GFR ESTIMATED 97
[2022-10-09 09:48] LABS: BUN/CREATININE RATIO 21
[2022-10-09 09:50] LABS: ALANINE AMINOTRANSFERASE 13 U/L (0-55)
--- NOTE | 2022-10-09 09:50 | Diagnostic Imaging Report ---
INDICATION: Chest pain. COMPARISON: None available. FINDINGS: The lungs appear clear without focal airspace opacities or consolidation. There are no findings of an effusion. There is no evidence of a pneumothorax. Heart size and mediastinal contours appear appropriate. Pulmonary vascularity appears within normal limits. There is no acute or suspicious osseous abnormality demonstrated. IMPRESSION: No radiographic evidence of an acute cardiopulmonary process. Dictated by: Dictated on workstation # [id number]
[2022-10-09 12:30] VITALS: BP 102/65
== END 2022-10-09 12:30 | disposition home or self-care (01) ==
LOC: EDUNIT# 09:14 → ER 09:16
DX: R07.89 Other chest pain (principal); F17.210 Nicotine dependence, cigarettes, uncomplicated; Z91.040 Latex allergy status; X58.XXXA Exposure to other specified factors, initial encounter; Y92.320 Baseball field as the place of occurrence of the external cause; Y93.02 Activity, running
CPT/HCPCS: 36415; 71045; 80053; 83735; 83874; 84484; 85025; 85610; 85730; 93005; 93041